=== PATIENT | male | born 1995 | race Asian ===

== ENCOUNTER 2018-03-01 20:32 | Inpatient (IN) | payer MEDICAID ==
[~2018-03-01] VITALS: Ht 172.7 cm; Wt 180.0 kg
[~2018-03-01 20:32] MED LIST: PANT40TA4 PO
[2018-03-01 21:25] LABS: HEMOGLOBIN 11.8 g/dl (14.0-17.9); MONOCYTES # (AUTO) 1.2 X10'3 (0-0.9); WHITE BLOOD COUNT 16.7 X10'3 (4.5-11.0)
[2018-03-01 21:37] LABS: INR 0.9 INR; PARTIAL THROMBOPLASTIN TIME 27 SECONDS (22-32); PROTHROMBIN TIME 9.8 SECONDS (9.0-12.0)
[2018-03-01 21:47] LABS: ALANINE AMINOTRANSFERASE 103 U/L (12-78); ALBUMIN 3.2 G/DL (3.4-5.0); ALBUMIN/GLOBULIN RATIO 0.7 (1.1-1.5); ALKALINE PHOSPHATASE 126 IU/L (46-116); ANION GAP 9 (8-16); ASPARTATE AMINO TRANSFERASE 55 U/L (10-37); BILIRUBIN,TOTAL 0.5 MG/DL (0.1-1.0); BLOOD UREA NITROGEN 14 MG/DL (7-18); BUN/CREATININE RATIO 13.9 (5.4-32.0); CALCIUM 9.1 MG/DL (8.5-10.1); CHLORIDE 107 MMOL/L (99-107); CREATININE 1.01 MG/DL (0.60-1.10); GLUCOSE 141 MG/DL (70-104); POTASSIUM 4.2 MMOL/L (3.5-5.1); SODIUM 144 MMOL/L (135-145); TOTAL CARBON DIOXIDE 28.1 MMOL/L (24-32); TOTAL PROTEIN 7.7 G/DL (6.4-8.2); eGFR > 90 ML/MIN
[2018-03-01 22:02] LABS: BASOPHILS # (AUTO) 0.1 X10'3 (0-0.2); BASOPHILS % (AUTO) 0.7 % (0-1); EOSINOPHILS # (AUTO) 0.7 X10'3 (0-0.9); EOSINOPHILS % (AUTO) 4.2 % (0-6); LYMPHOCYTES # (AUTO) 3.3 X10'3 (1.1-4.8); LYMPHOCYTES % (AUTO) 19.6 % (21-51); MEAN CORPUSCULAR HEMOGLOBIN 17.8 PG (27.0-31.0); MEAN CORPUSCULAR HGB CONC 30.3 % (33.0-36.5); MEAN CORPUSCULAR VOLUME 58.5 FL (78-98); MEAN PLATELET VOLUME 8.4 FL (7.4-10.4); MONOCYTES % (AUTO) 7.4 % (2-12); NEUTROPHILS # (AUTO) 11.4 X10'3 (1.8-7.7); NEUTROPHILS % (AUTO) 68.1 % (42-75); PLATELET COUNT 349 X10'3 (140-440); RED BLOOD COUNT 6.66 X10'6 (4.70-6.10)
[2018-03-01 22:47] LABS: ANISOCYTOSIS 2+; MICROCYTOSIS 3+; PLATELET ESTIMATE NORMAL
[2018-03-01 22:48] LABS: HYPOCHROMASIA 1+; POLYCHROMASIA 1+; TARGET CELLS FEW
[2018-03-01] MEDS ORDERED: albuterol 2.5 MG/3 ML nebule NEB ONE (22:50)
[2018-03-01] MEDS ORDERED: methylPREDNISolone sod succ 125mg/2ml vial IV ONE (22:50)
[2018-03-01 23:23] LABS: D-DIMER 0.31 MG/L FEU (0-0.50)
[2018-03-02 00:16] LABS: ABG BASE EXCESS -1.3 mmol/L (-2.0-3.0); ABG HCO3 24.8 mmol/L (22.0-26.0); ABG OXYGEN SATURATION 89.4 % (95-98); ABG PCO2 (T) 47.4 mmHg (35.0-48.0); ABG PH (T) 7.337 (7.350-7.450); ABG PO2 (T) 61.2 mmHg (83-108); ALLEN'S TEST Positive; FCOHb 1.5 % (0.5-1.5); FMetHb 0.1 % (0.3-1.12); RESPIRATORY RATE (OBSERVED) 20 b/min; TOTAL HEMOGLOBIN 12.7 G/dl (14.0-18.0)
[2018-03-02] MEDS ORDERED: NO HOME MEDS (00:18)
[2018-03-02] MEDS ORDERED: iohexol 350MG/ML 100ml bottle IV ONE (00:37)
[2018-03-02] MEDS ORDERED: potassium Cl 40MEQ/NS 500ml 500 ML IV PRN ×2 (01:40)
[2018-03-02] MEDS ORDERED: magnesium hydroxide 30ml (MOM) UD suspension PO PRN (01:40)
[2018-03-02] MEDS ORDERED: potassium Cl 20 mEq SR tablet PO PRN ×2 (01:40)
[2018-03-02] MEDS ORDERED: ondansetron/PF 4mg/2ml inj IV PRN (01:40)
[2018-03-02] MEDS ORDERED: acetaminophen 325mg tablet PO PRN (01:40)
[2018-03-02] MEDS ORDERED: morphine 4 MG/ML inj SYRINge IV PRN (01:40)
[2018-03-02] MEDS ORDERED: HYDROcodone/acetaminophen 5mg/325mg tablet PO PRN (01:40)
[2018-03-02] MEDS ORDERED: mag hydrox/Alum hydrox/simeth 30ml oral suspension PO PRN (01:40)
[2018-03-02] MEDS ORDERED: furosemide 10 MG/1 ML 10ml inj IV ONE (01:45)
[2018-03-02] MEDS ORDERED: ipratropium/albuterol 3ml nebule NEB PRN ×2 (01:45→02:25)
[2018-03-02 02:11] LABS: HEMOGLOBIN A1C 6.3 % (4.5-6.2)
[2018-03-02] MEDS: CefTRIAXone/D5W-Rocephin 1gm 50 ML IV SCH ×2 (02:24→20:33)
[2018-03-02] MEDS ORDERED: insulin Lispro (HumaLOG) vial - multi-dose SQ SCH (02:25)
[2018-03-02] MEDS ORDERED: dextrose 50%-water 50ml dispensing syringe IV PRN ×2 (02:25)
[2018-03-02] MEDS ORDERED: dextrose ORAL solution 15 GM/59 ML bottle PO PRN ×2 (02:25)
[2018-03-02] MEDS ORDERED: glucagon, human recombinant 1mg kit SUBCUT PRN (02:25)
[2018-03-02] MEDS ORDERED: MESSAGE TO PHARMACY PO ONE (02:25)
[2018-03-02] MEDS: K and/or MAG REPLACEMENT MC SCH (08:00)
[2018-03-02] MEDS: lactobacillus rhamnosus 10,000 MMU CELLS/CAPSULE PO SCH ×2 (10:09→20:33)
[2018-03-02] MEDS: lisinopril 10 MG tablet PO SCH (10:09)
[2018-03-02] MEDS: heparin, porcine 5000 units/ml vial SQ SCH ×2 (10:09→16:39)
[2018-03-02 15:00] VITALS: BP 107/58
[2018-03-02 17:39] LABS: BASOPHILS % (AUTO) 0 % (0-1); EOSINOPHILS % (AUTO) 0 % (0-6); HEMATOCRIT 38.8 % (42.0-52.0); HEMOGLOBIN 11.6 g/dl (14.0-17.9); LYMPHOCYTES # (AUTO) 1.9 X10'3 (1.1-4.8); LYMPHOCYTES % (AUTO) 7.7 % (21-51); MEAN CORPUSCULAR HEMOGLOBIN 17.4 PG (27.0-31.0); MEAN CORPUSCULAR HGB CONC 29.8 % (33.0-36.5); MEAN CORPUSCULAR VOLUME 58.4 FL (78-98); MEAN PLATELET VOLUME 8.3 FL (7.4-10.4); MONOCYTES # (AUTO) 1.4 X10'3 (0-0.9); MONOCYTES % (AUTO) 5.6 % (2-12); NEUTROPHILS # (AUTO) 21.1 X10'3 (1.8-7.7); NEUTROPHILS % (AUTO) 86.7 % (42-75); PLATELET COUNT 403 X10'3 (140-440); RED BLOOD COUNT 6.64 X10'6 (4.70-6.10); RED CELL DISTRIBUTION WIDTH 20.5 % (11.5-14.5); WHITE BLOOD COUNT 24.3 X10'3 (4.5-11.0)
[2018-03-02 17:42] LABS: PLATELET ESTIMATE NORMAL
[2018-03-02 17:52] LABS: HYPOCHROMASIA 3+; POLYCHROMASIA 1+
[2018-03-02 17:53] LABS: ANISOCYTOSIS 2+; MICROCYTOSIS 3+
[2018-03-02 19:00] VITALS: BP 133/75
[2018-03-02 21:00] VITALS: BP 154/72
[2018-03-02] MEDS: insulin glargine (Lantus) pen - multi-dose SQ SCH (21:00)
[2018-03-02 23:00] VITALS: BP 154/72
[2018-03-03] VITALS (10 sets, daily range): BP systolic 110–146; BP diastolic 50–98
[2018-03-03] MEDS: heparin, porcine 5000 units/ml vial SQ SCH ×3 (00:43→16:01)
[2018-03-03 02:05] LABS: % IRON SATURATION 7 % (11-46); IRON 22 UG/DL (53-167); TOTAL IRON BINDING CAPACITY 332 UG/DL (259-388)
[2018-03-03 02:13] LABS: BASOPHILS % (AUTO) 0.2 % (0-1); EOSINOPHILS # (AUTO) 0.3 X10'3 (0-0.9); EOSINOPHILS % (AUTO) 1.6 % (0-6); HEMATOCRIT 37.1 % (42.0-52.0); HEMOGLOBIN 11.2 g/dl (14.0-17.9); LYMPHOCYTES # (AUTO) 2.1 X10'3 (1.1-4.8); LYMPHOCYTES % (AUTO) 10.1 % (21-51); MEAN CORPUSCULAR HEMOGLOBIN 17.8 PG (27.0-31.0); MEAN CORPUSCULAR HGB CONC 30.1 % (33.0-36.5); MEAN PLATELET VOLUME 8.4 FL (7.4-10.4); MONOCYTES # (AUTO) 1.5 X10'3 (0-0.9); MONOCYTES % (AUTO) 6.9 % (2-12); NEUTROPHILS # (AUTO) 17.2 X10'3 (1.8-7.7); NEUTROPHILS % (AUTO) 81.2 % (42-75); PLATELET COUNT 339 X10'3 (140-440); RED BLOOD COUNT 6.29 X10'6 (4.70-6.10); RED CELL DISTRIBUTION WIDTH 20.2 % (11.5-14.5); WHITE BLOOD COUNT 21.2 X10'3 (4.5-11.0)
[2018-03-03 02:31] LABS: ALANINE AMINOTRANSFERASE 100 U/L (12-78); ALBUMIN 2.9 G/DL (3.4-5.0); ALBUMIN/GLOBULIN RATIO 0.7 (1.1-1.5); ALKALINE PHOSPHATASE 101 IU/L (46-116); ANION GAP 8 (8-16); ASPARTATE AMINO TRANSFERASE 46 U/L (10-37); BILIRUBIN,TOTAL 0.5 MG/DL (0.1-1.0); BLOOD UREA NITROGEN 19 MG/DL (7-18); BUN/CREATININE RATIO 17.3 (5.4-32.0); CALCIUM 8.5 MG/DL (8.5-10.1); CHLORIDE 103 MMOL/L (99-107); FERRITIN 23 NG/ML (26-388); GLUCOSE 172 MG/DL (70-104); MAGNESIUM 2.1 MG/DL (1.5-2.4); PHOSPHORUS 5.1 MG/DL (2.3-4.5); POTASSIUM 3.8 MMOL/L (3.5-5.1); SODIUM 143 MMOL/L (135-145); TOTAL PROTEIN 7.1 G/DL (6.4-8.2); eGFR 84 ML/MIN
[2018-03-03 03:26] LABS: NUCLEATED RED BLOOD CELLS 1 /100WBC (0-0); PLATELET ESTIMATE NORMAL; TOTAL CELLS COUNTED 100
[2018-03-03 03:27] LABS: ANISOCYTOSIS 2+; HYPOCHROMASIA 3+; MICROCYTOSIS 3+; POLYCHROMASIA 1+
[2018-03-03 03:28] LABS: TARGET CELLS FEW; TEAR DROP CELLS FEW
[2018-03-03] MEDS: lactobacillus rhamnosus 10,000 MMU CELLS/CAPSULE PO SCH ×2 (07:57→20:22)
[2018-03-03] MEDS: lisinopril 10 MG tablet PO SCH (07:58)
[2018-03-03] MEDS: K and/or MAG REPLACEMENT MC SCH (08:00)
[2018-03-03] MEDS: CefTRIAXone/D5W-Rocephin 1gm 50 ML IV SCH (20:22)
[2018-03-03] MEDS: insulin glargine (Lantus) pen - multi-dose SQ SCH (21:00)
[2018-03-04] VITALS (12 sets, daily range): BP systolic 127–148; BP diastolic 55–85
[2018-03-04] MEDS: heparin, porcine 5000 units/ml vial SQ SCH ×3 (00:25→16:13)
[2018-03-04 00:41] LABS: BASOPHILS # (AUTO) 0.1 X10'3 (0-0.2); BASOPHILS % (AUTO) 0.5 % (0-1); EOSINOPHILS # (AUTO) 0.6 X10'3 (0-0.9); EOSINOPHILS % (AUTO) 3.6 % (0-6); HEMATOCRIT 40.3 % (42.0-52.0); HEMOGLOBIN 11.9 g/dl (14.0-17.9); LYMPHOCYTES # (AUTO) 3.1 X10'3 (1.1-4.8); LYMPHOCYTES % (AUTO) 19.7 % (21-51); MEAN CORPUSCULAR HEMOGLOBIN 17.5 PG (27.0-31.0); MEAN CORPUSCULAR HGB CONC 29.6 % (33.0-36.5); MONOCYTES # (AUTO) 1.1 X10'3 (0-0.9); MONOCYTES % (AUTO) 6.9 % (2-12); NEUTROPHILS % (AUTO) 69.3 % (42-75); PLATELET COUNT 371 X10'3 (140-440); RED BLOOD COUNT 6.83 X10'6 (4.70-6.10); RED CELL DISTRIBUTION WIDTH 20.9 % (11.5-14.5); WHITE BLOOD COUNT 15.9 X10'3 (4.5-11.0)
[2018-03-04 00:57] LABS: ALANINE AMINOTRANSFERASE 163 U/L (12-78); ALBUMIN/GLOBULIN RATIO 0.7 (1.1-1.5); ALKALINE PHOSPHATASE 118 IU/L (46-116); ANION GAP 9 (8-16); ASPARTATE AMINO TRANSFERASE 94 U/L (10-37); BILIRUBIN,TOTAL 0.4 MG/DL (0.1-1.0); BLOOD UREA NITROGEN 16 MG/DL (7-18); CALCIUM 8.7 MG/DL (8.5-10.1); CHLORIDE 105 MMOL/L (99-107); CREATININE 1.07 MG/DL (0.60-1.10); GLUCOSE 110 MG/DL (70-104); PHOSPHORUS 4.5 MG/DL (2.3-4.5); SODIUM 145 MMOL/L (135-145); TOTAL CARBON DIOXIDE 31.2 MMOL/L (24-32); TOTAL PROTEIN 7.5 G/DL (6.4-8.2); eGFR 86 ML/MIN
[2018-03-04] MEDS: lactobacillus rhamnosus 10,000 MMU CELLS/CAPSULE PO SCH ×2 (07:19→20:45)
[2018-03-04] MEDS: lisinopril 10 MG tablet PO SCH (07:19)
[2018-03-04 07:31] LABS: ANISOCYTOSIS 3+; MICROCYTOSIS 3+; PLATELET ESTIMATE NORMAL
[2018-03-04 07:34] LABS: POIKILOCYTOSIS FEW; POLYCHROMASIA 1+; TARGET CELLS FEW
[2018-03-04] MEDS: K and/or MAG REPLACEMENT MC SCH (08:00)
[2018-03-04] MEDS: CefTRIAXone/D5W-Rocephin 1gm 50 ML IV SCH (20:46)
[2018-03-04] MEDS: insulin glargine (Lantus) pen - multi-dose SQ SCH (21:00)
[2018-03-05] VITALS (8 sets, daily range): BP systolic 106–146; BP diastolic 52–96
[2018-03-05] MEDS: heparin, porcine 5000 units/ml vial SQ SCH ×3 (00:46→16:19)
[2018-03-05 01:13] LABS: ALANINE AMINOTRANSFERASE 162 U/L (12-78); ALBUMIN 2.9 G/DL (3.4-5.0); ALBUMIN/GLOBULIN RATIO 0.7 (1.1-1.5); ALKALINE PHOSPHATASE 104 IU/L (46-116); ANION GAP 4 (8-16); ASPARTATE AMINO TRANSFERASE 77 U/L (10-37); BILIRUBIN,TOTAL 0.5 MG/DL (0.1-1.0); BLOOD UREA NITROGEN 14 MG/DL (7-18); BUN/CREATININE RATIO 14.7 (5.4-32.0); CALCIUM 8.7 MG/DL (8.5-10.1); CHLORIDE 106 MMOL/L (99-107); CREATININE 0.95 MG/DL (0.60-1.10); GLUCOSE 93 MG/DL (70-104); PHOSPHORUS 4.3 MG/DL (2.3-4.5); SODIUM 144 MMOL/L (135-145); TOTAL CARBON DIOXIDE 33.9 MMOL/L (24-32); TOTAL PROTEIN 6.9 G/DL (6.4-8.2); eGFR > 90 ML/MIN
[2018-03-05 01:49] LABS: BASOPHILS # (AUTO) 0.1 X10'3 (0-0.2); BASOPHILS % (AUTO) 0.4 % (0-1); EOSINOPHILS # (AUTO) 0.8 X10'3 (0-0.9); EOSINOPHILS % (AUTO) 5.7 % (0-6); HEMATOCRIT 38.3 % (42.0-52.0); HEMOGLOBIN 11.4 g/dl (14.0-17.9); LYMPHOCYTES # (AUTO) 2.6 X10'3 (1.1-4.8); LYMPHOCYTES % (AUTO) 19.6 % (21-51); MEAN CORPUSCULAR HEMOGLOBIN 17.7 PG (27.0-31.0); MEAN CORPUSCULAR HGB CONC 29.6 % (33.0-36.5); MEAN CORPUSCULAR VOLUME 59.7 FL (78-98); MEAN PLATELET VOLUME 8.3 FL (7.4-10.4); MONOCYTES # (AUTO) 1.1 X10'3 (0-0.9); MONOCYTES % (AUTO) 8.3 % (2-12); NEUTROPHILS # (AUTO) 8.8 X10'3 (1.8-7.7); PLATELET COUNT 351 X10'3 (140-440); RED BLOOD COUNT 6.42 X10'6 (4.70-6.10); RED CELL DISTRIBUTION WIDTH 20.3 % (11.5-14.5); WHITE BLOOD COUNT 13.4 X10'3 (4.5-11.0)
[2018-03-05 06:39] LABS: ANISOCYTOSIS 2+; MICROCYTOSIS 3+; PLATELET ESTIMATE NORMAL
[2018-03-05 06:40] LABS: HYPOCHROMASIA 1+; POIKILOCYTOSIS FEW; POLYCHROMASIA 2+; TARGET CELLS 1+
[2018-03-05] MEDS: lisinopril 10 MG tablet PO SCH (07:35)
[2018-03-05] MEDS: lactobacillus rhamnosus 10,000 MMU CELLS/CAPSULE PO SCH ×2 (07:35→19:57)
[2018-03-05] MEDS: K and/or MAG REPLACEMENT MC SCH (08:00)
[2018-03-05] MEDS: insulin glargine (Lantus) pen - multi-dose SQ SCH (21:00)
[2018-03-05] MEDS: CefTRIAXone/D5W-Rocephin 1gm 50 ML IV SCH (21:20)
[2018-03-06] MEDS: heparin, porcine 5000 units/ml vial SQ SCH ×2 (00:10→07:51)
[2018-03-06 03:00] VITALS: BP 121/52
[2018-03-06 05:55] LABS: ALANINE AMINOTRANSFERASE 163 U/L (12-78); ALBUMIN 2.9 G/DL (3.4-5.0); ALBUMIN/GLOBULIN RATIO 0.7 (1.1-1.5); ALKALINE PHOSPHATASE 97 IU/L (46-116); ANION GAP 6 (8-16); ASPARTATE AMINO TRANSFERASE 80 U/L (10-37); BILIRUBIN,TOTAL 0.7 MG/DL (0.1-1.0); BLOOD UREA NITROGEN 12 MG/DL (7-18); BUN/CREATININE RATIO 12.6 (5.4-32.0); CALCIUM 8.7 MG/DL (8.5-10.1); CHLORIDE 104 MMOL/L (99-107); CREATININE 0.95 MG/DL (0.60-1.10); GLUCOSE 93 MG/DL (70-104); PHOSPHORUS 4.1 MG/DL (2.3-4.5); POTASSIUM 3.8 MMOL/L (3.5-5.1); SODIUM 143 MMOL/L (135-145); TOTAL CARBON DIOXIDE 32.9 MMOL/L (24-32); eGFR > 90 ML/MIN
[2018-03-06 06:00] VITALS: BP 109/76
[2018-03-06 06:47] LABS: BASOPHILS % (AUTO) 0.4 % (0-1); EOSINOPHILS # (AUTO) 0.6 X10'3 (0-0.9); EOSINOPHILS % (AUTO) 5.2 % (0-6); HEMATOCRIT 36.9 % (42.0-52.0); HEMOGLOBIN 11.1 g/dl (14.0-17.9); LYMPHOCYTES # (AUTO) 2.2 X10'3 (1.1-4.8); LYMPHOCYTES % (AUTO) 20.1 % (21-51); MEAN CORPUSCULAR HEMOGLOBIN 17.8 PG (27.0-31.0); MEAN CORPUSCULAR VOLUME 59.3 FL (78-98); MEAN PLATELET VOLUME 8.3 FL (7.4-10.4); MONOCYTES # (AUTO) 0.9 X10'3 (0-0.9); MONOCYTES % (AUTO) 7.9 % (2-12); NEUTROPHILS # (AUTO) 7.3 X10'3 (1.8-7.7); NEUTROPHILS % (AUTO) 66.4 % (42-75); PLATELET COUNT 339 X10'3 (140-440); RED BLOOD COUNT 6.23 X10'6 (4.70-6.10); RED CELL DISTRIBUTION WIDTH 20.2 % (11.5-14.5); WHITE BLOOD COUNT 11.1 X10'3 (4.5-11.0)
[2018-03-06] MEDS: K and/or MAG REPLACEMENT MC SCH (07:39)
[2018-03-06] MEDS: lactobacillus rhamnosus 10,000 MMU CELLS/CAPSULE PO SCH (07:49)
[2018-03-06] MEDS: lisinopril 10 MG tablet PO SCH (07:50)
[2018-03-06 07:51] LABS: ABG BASE EXCESS 4.8 mmol/L (-2.0-3.0); ABG HCO3 31.2 mmol/L (22.0-26.0); ABG OXYGEN SATURATION 89.8 % (95-98); ABG PCO2 (T) 54.3 mmHg (35.0-48.0); ABG PH (T) 7.377 (7.350-7.450); ABG PO2 (T) 61.1 mmHg (83-108); ALLEN'S TEST Positive; FCOHb 0.9 % (0.5-1.5); FMetHb 0.2 % (0.3-1.12); FO2Hb 88.8 % (94-100); TOTAL HEMOGLOBIN 12.6 G/dl (14.0-18.0)
[2018-03-06 11:00] VITALS: BP 131/82
[2018-03-06] MEDS ORDERED: AMOX-422 PO (14:04)
[2018-03-06] MEDS ORDERED: LISI10TA4 PO (14:05)
[2018-03-06 15:00] VITALS: BP 113/59
== END 2018-03-06 15:40 | disposition home or self-care (01) | DRG 140 ==
LOC: ER 20:32 → ED HOLD 03-02 01:38 → PCU 3S 03-02 12:24
PROVIDERS: ADMIT Family Medicine; ATTEND Internal Medicine
PROC: 5A09457 Assistance with Respiratory Ventilation, 24-96 Consecutive Hours, Continuous Positive Airway Pressure (ICD-10-PCS; principal; 2018-03-02)
PROC: B32T1ZZ Computerized Tomography (CT Scan) of Left Pulmonary Artery using Low Osmolar Contrast (ICD-10-PCS; 2018-03-02)
PROC: B3201ZZ Computerized Tomography (CT Scan) of Thoracic Aorta using Low Osmolar Contrast (ICD-10-PCS; 2018-03-02)
PROC: B32S1ZZ Computerized Tomography (CT Scan) of Right Pulmonary Artery using Low Osmolar Contrast (ICD-10-PCS; 2018-03-02)
DX: J44.0 Chronic obstructive pulmonary disease with (acute) lower respiratory infection (principal); I50.9 Heart failure, unspecified; K76.0 Fatty (change of) liver, not elsewhere classified; I11.0 Hypertensive heart disease with heart failure; Z68.44 Body mass index [BMI] 60.0-69.9, adult; L03.115 Cellulitis of right lower limb; E66.2 Morbid (severe) obesity with alveolar hypoventilation; L03.116 Cellulitis of left lower limb; R73.9 Hyperglycemia, unspecified; R74.0 Nonspecific elevation of levels of transaminase and lactic acid dehydrogenase [LDH]; R09.02 Hypoxemia; M79.1 Myalgia; D50.9 Iron deficiency anemia, unspecified; J20.9 Acute bronchitis, unspecified; Z79.899 Other long term (current) drug therapy; Z81.8 Family history of other mental and behavioral disorders
CPT/HCPCS: 36415; 36600; 71045; 71275; 80053; 82728; 82803; 82948; 83036; 83540; 83550; 83605; 83735; 83880; 84100; 84484; 85018; 85025; 85379; 85610; 85730; 87040; 87502; 87503; 93306; 94640; 94660; 94760; 96374; 99285; A6449; J0696; J1644; J1815; J1940; J2930; J7030; Q9967

== ENCOUNTER 2018-04-12 11:23 | Emergency (ER) | payer MEDICAID ==
[~2018-04-12] VITALS: Ht 172.7 cm; Wt 159.1 kg
[~2018-04-12 11:23] MED LIST changes: +LISI10TA4 PO; +NO HOME MEDS
[2018-04-12 11:56] VITALS: BP 128/88
[2018-04-12] MEDS ORDERED: zinc oxide ointment 30gm tube TP STA (12:28)
[2018-04-12] MEDS ORDERED: ketoconazole 2% cream 15gm TP STA (12:28)
[2018-04-12] MEDS ORDERED: mupirocin 2% ointment 22GM TP STA (12:28)
== END 2018-04-12 13:02 | disposition home or self-care (01) ==
LOC: ER 11:24
DX: R21 Rash and other nonspecific skin eruption (principal); Z90.89 Acquired absence of other organs; Z79.899 Other long term (current) drug therapy
CPT/HCPCS: 99284

== ENCOUNTER 2019-01-18 03:41 | Inpatient (IN) | payer MEDICAID ==
[~2019-01-18] VITALS: Ht 170.2 cm; Wt 151.8 kg
[2019-01-18] VITALS (16 sets, daily range): BP systolic 106–156; BP diastolic 43–82
[2019-01-18] MEDS ORDERED: ondansetron/PF 4mg/2ml inj IV ONE (03:50)
[2019-01-18] MEDS ORDERED: normal saline 1000ML IV soln IVB ONE (03:50)
[2019-01-18] MEDS: morphine 4 MG/ML inj SYRINge IV PRN ×2 (03:59→04:32)
[2019-01-18 04:21] LABS: CLARITY,URINE CLEAR (Clear); COLOR,URINE YELLOW (Yellow); GLUCOSE, URINE NEGATIVE (Neg); KETONES,URINE NEGATIVE (Neg); LEUKOCYTE ESTERASE ,URINE NEGATIVE (Neg); NITRITES, URINE NEGATIVE (Neg); OCCULT BLOOD,URINE NEGATIVE (Neg); PH,URINE 6.5 (4.8-8.0); PROTEIN,URINE NEGATIVE (Neg); UROBILINOGEN,URINE 0.2 E.U/dL (0.2-1.0)
[2019-01-18 04:22] LABS: ALANINE AMINOTRANSFERASE 88 U/L (12-78); ALBUMIN 3.6 G/DL (3.4-5.0); ALBUMIN/GLOBULIN RATIO 0.9 (1.1-1.5); ALKALINE PHOSPHATASE 127 IU/L (46-116); ANION GAP 12 (8-16); ASPARTATE AMINO TRANSFERASE 46 U/L (10-37); BILIRUBIN,TOTAL 0.8 MG/DL (0.1-1.0); BLOOD UREA NITROGEN 12 MG/DL (7-18); BUN/CREATININE RATIO 10.5 (5.4-32.0); CALCIUM 8.9 MG/DL (8.5-10.1); CHLORIDE 104 MMOL/L (99-107); CREATININE 1.14 MG/DL (0.60-1.10); GLUCOSE 95 MG/DL (70-104); LIPASE 115 U/L (73-393); POTASSIUM 3.4 MMOL/L (3.5-5.1); SODIUM 143 MMOL/L (135-145); TOTAL CARBON DIOXIDE 27.2 MMOL/L (24-32); TOTAL PROTEIN 7.8 G/DL (6.4-8.2); eGFR 80 ML/MIN
[2019-01-18 04:26] LABS: UA COLLECTION TYPE CLN CATCH MIDSTREAM
[2019-01-18 04:26] LABS: BASOPHILS # (AUTO) 0.2 X10'3 (0-0.2); BASOPHILS % (AUTO) 1.4 % (0-1); EOSINOPHILS # (AUTO) 0.5 X10'3 (0-0.9); EOSINOPHILS % (AUTO) 4.3 % (0-6); HEMATOCRIT 40.7 % (42.0-52.0); HEMOGLOBIN 12.1 g/dl (14.0-17.9); LYMPHOCYTES # (AUTO) 2.6 X10'3 (1.1-4.8); LYMPHOCYTES % (AUTO) 21.5 % (21-51); MEAN CORPUSCULAR HEMOGLOBIN 19.1 PG (27.0-31.0); MEAN CORPUSCULAR HGB CONC 29.7 g/dL (33.0-36.5); MEAN CORPUSCULAR VOLUME 64.3 FL (78-98); MEAN PLATELET VOLUME 8.5 FL (7.4-10.4); MONOCYTES # (AUTO) 0.7 X10'3 (0-0.9); NEUTROPHILS # (AUTO) 8.2 X10'3 (1.8-7.7); NEUTROPHILS % (AUTO) 66.8 % (42-75); PLATELET COUNT 318 X10'3 (140-440); RED BLOOD COUNT 6.33 X10'6 (4.70-6.10); RED CELL DISTRIBUTION WIDTH 16.4 % (11.5-14.5); WHITE BLOOD COUNT 12.3 X10'3 (4.5-11.0)
[2019-01-18] MEDS ORDERED: piperacillin/tazo 3.375gm/50ml 50 ML IV ONE (05:20)
[2019-01-18] MEDS ORDERED: dextrose 5%-1/2 normal saline 1,000 ML IV SCH (05:37)
[2019-01-18] MEDS ORDERED: magnesium hydroxide 30ml (MOM) UD suspension PO PRN (05:40)
[2019-01-18] MEDS ORDERED: morphine 4 MG/ML inj SYRINge IV PRN ×6 (05:40→07:25)
[2019-01-18] MEDS ORDERED: ondansetron/PF 4mg/2ml inj IV PRN ×4 (05:40→07:40)
[2019-01-18] MEDS ORDERED: HYDROcodone/acetaminophen 5mg/325mg tablet PO PRN ×2 (05:40→07:40)
[2019-01-18] MEDS ORDERED: mag hydrox/Alum hydrox/simeth 30ml oral suspension PO PRN (05:40)
[2019-01-18] MEDS ORDERED: HYDROcodone/acetaminophen 10/325mg tab PO PRN ×2 (05:40→07:40)
[2019-01-18] MEDS ORDERED: acetaminophen 325mg tablet PO PRN ×2 (05:40)
[2019-01-18 06:16] LABS: PLATELET ESTIMATE NORMAL
[2019-01-18 06:17] LABS: ANISOCYTOSIS 1+; MICROCYTOSIS 2+
[2019-01-18 06:18] LABS: HYPOCHROMASIA 1+; POLYCHROMASIA FEW
[2019-01-18] MEDS ORDERED: LIDOcaine 1% 30ml preserv. free vial ONE (06:34)
[2019-01-18] MEDS ORDERED: BUPIVAcaine/PF 2.5mg/ml (0.25%) 10ml vial ONE (06:34)
[2019-01-18] MEDS ORDERED: fentaNYL/PF 50MCG/1 ML 2ML syringe ONE (06:52)
[2019-01-18] MEDS ORDERED: midazolam 2 mg/2 ml injection ONE (06:52)
[2019-01-18] MEDS ORDERED: LIDOcaine 2% (20mg/ml) 5ml vial ONE (06:52)
[2019-01-18] MEDS ORDERED: propofol inj 20 ML IV ONE (06:52)
[2019-01-18] MEDS ORDERED: rocuronium 10mg/ml inj IV ONE (06:55)
[2019-01-18] MEDS ORDERED: ringers solution, lacted 1,000 ML IV SCH ×2 (07:21→07:22)
[2019-01-18] MEDS ORDERED: meperidine/PF 25mg/ml syringe IV PRN ×6 (07:25)
[2019-01-18] MEDS ORDERED: proCHLORperazine 10 MG/2 ml inj IV PRN ×2 (07:25)
[2019-01-18] MEDS ORDERED: neostigmine methylsulfate 1 MG/ML 10ml vial ONE (07:29)
[2019-01-18] MEDS ORDERED: ketorolac trometh. 30mg/ml inj. ONE (07:29)
[2019-01-18] MEDS ORDERED: glycopyrrolate 0.2mg/ml inj ONE (07:29)
[2019-01-18] MEDS ORDERED: ondansetron/PF 4mg/2ml inj ONE (07:29)
--- NOTE | 2019-01-18 07:50 | NUR ---
Received from OR via BED, accompanied by Anesthesiologist --TRIP- and report given by Anesthesiolgist. PATIENT WAKING UP, DENIES PAIN, V/S WNL, NEUROVASCULAR CHECKS INTACT, 20G PIV LUE, SCD ON, 4 BANDAIDS TO ABDOMEN LAP SITES CDI
--- NOTE | 2019-01-18 08:50 | NUR ---
pATIENT A&OX4, DENIES PAIN, V/S WNL, CSM INTACT, 18G IN LEFT HAND, SCD ON, 4 BANDAIDS TO ABDOMEN CDI. PATIENT TAKEN TO 354C WITH ALL BELONGINGS AND HOOKED UP TO MONITORS IN ROOM AND REPORT GIVEN TO ELENA ALVARADO WHO HAS TAKEN OVER PATIENT CARE.
--- NOTE | 2019-01-18 09:00 | NUR ---
[facility]. Pt on post op vs. Discussed POC and pt verbalizes understanding. Visitor at bedside. Lap sites with bandaids x4 CDI. Bed low call light in reach.
--- NOTE | 2019-01-18 15:30 | NUR ---
Spoke with Dr Gardner about pt meeting criteria for DC and wishing to go. He cleared him for Hospitalist to DC. No Hospitalist is assigned for days so Dr Quiroga agreed to do the DC.
[2019-01-18] MEDS ORDERED: HYDR-3972 PO (16:08)
--- NOTE | 2019-01-18 16:28 | NUR ---
Pt refused Nasal swab for MRSA.
== END 2019-01-18 16:59 | disposition home or self-care (01) | DRG 263 ==
LOC: ER 03:41 → ED HOLD 05:37 → SUR 3N 08:59
PROVIDERS: ADMIT Internal Medicine; ATTEND Family Medicine
PROC: 0FT44ZZ Resection of Gallbladder, Percutaneous Endoscopic Approach (ICD-10-PCS; principal; 2019-01-18 06:50)
DX: K80.00 Calculus of gallbladder with acute cholecystitis without obstruction (principal); N17.9 Acute kidney failure, unspecified; E66.01 Morbid (severe) obesity due to excess calories; D50.9 Iron deficiency anemia, unspecified; E86.0 Dehydration; E87.6 Hypokalemia; G47.30 Sleep apnea, unspecified; R74.0 Nonspecific elevation of levels of transaminase and lactic acid dehydrogenase [LDH]; Z68.43 Body mass index [BMI] 50.0-59.9, adult
CPT/HCPCS: 36415; 74176; 80053; 81003; 83690; 85025; 96374; 96375; 99285; A7000; G0378; J1885; J2001; J2250; J2270; J2405; J2543; J2704; J2710; J3010; J3490; J7120

== ENCOUNTER 2019-06-22 18:06 | Emergency (ER) | payer MEDICAID ==
[~2019-06-22] VITALS: Ht 172.7 cm; Wt 143.0 kg
[~2019-06-22 18:06] MED LIST changes: +HYDR-3972 PO; -LISI10TA4 PO; -NO HOME MEDS; -PANT40TA4 PO
[2019-06-22 18:13] VITALS: BP 161/100
[2019-06-22] MEDS ORDERED: CLOT15CR5 TOP (21:33)
[2019-06-22] MEDS ORDERED: KETO120S3 TOP (21:33)
== END 2019-06-22 21:48 | disposition home or self-care (01) ==
LOC: ER 18:06
DX: B35.4 Tinea corporis (principal); Z98.890 Other specified postprocedural states; Z79.899 Other long term (current) drug therapy
CPT/HCPCS: 99282

== ENCOUNTER 2019-06-29 10:12 | Emergency (ER) | payer MEDICAID ==
[~2019-06-29] VITALS: Ht 172.7 cm; Wt 144.1 kg
[~2019-06-29 10:12] MED LIST changes: +CLOT15CR5 TOP; +KETO120S3 TOP
[2019-06-29 10:38] VITALS: BP 136/80
== END 2019-06-29 10:41 | disposition home or self-care (01) ==
LOC: ER 10:12
DX: B35.0 Tinea barbae and tinea capitis (principal); Z98.890 Other specified postprocedural states; Z79.899 Other long term (current) drug therapy
CPT/HCPCS: 99281

== ENCOUNTER 2019-08-09 15:30 | Emergency (ER) | payer MEDICAID ==
[~2019-08-09] VITALS: Ht 172.7 cm; Wt 124.0 kg
[2019-08-09 16:11] LABS: BASOPHILS # (AUTO) 0.1 X10'3 (0-0.2); BASOPHILS % (AUTO) 0.7 % (0-1); EOSINOPHILS # (AUTO) 0.4 X10'3 (0-0.9); EOSINOPHILS % (AUTO) 3.7 % (0-6); HEMATOCRIT 41.2 % (42.0-52.0); HEMOGLOBIN 12.5 g/dl (14.0-17.9); LYMPHOCYTES # (AUTO) 2.2 X10'3 (1.1-4.8); LYMPHOCYTES % (AUTO) 19.3 % (21-51); MEAN CORPUSCULAR HEMOGLOBIN 19.2 PG (27.0-31.0); MEAN CORPUSCULAR HGB CONC 30.4 g/dL (33.0-36.5); MEAN CORPUSCULAR VOLUME 63.3 FL (78-98); MEAN PLATELET VOLUME 8.1 FL (7.4-10.4); MONOCYTES # (AUTO) 0.7 X10'3 (0-0.9); MONOCYTES % (AUTO) 6.4 % (2-12); NEUTROPHILS # (AUTO) 7.9 X10'3 (1.8-7.7); NEUTROPHILS % (AUTO) 69.9 % (42-75); PLATELET COUNT 390 X10'3 (140-440); RED BLOOD COUNT 6.51 X10'6 (4.70-6.10); RED CELL DISTRIBUTION WIDTH 15.6 % (11.5-14.5); WHITE BLOOD COUNT 11.3 X10'3 (4.5-11.0)
[2019-08-09 16:16] LABS: ALANINE AMINOTRANSFERASE 48 U/L (12-78); ALBUMIN 3.7 G/DL (3.4-5.0); ALBUMIN/GLOBULIN RATIO 0.8 (1.1-1.5); ALKALINE PHOSPHATASE 133 IU/L (46-116); ANION GAP 8 (8-16); ASPARTATE AMINO TRANSFERASE 23 U/L (10-37); BILIRUBIN,TOTAL 0.6 MG/DL (0.1-1.0); BLOOD UREA NITROGEN 13 MG/DL (7-18); BUN/CREATININE RATIO 13.4 (5.4-32.0); CHLORIDE 110 MMOL/L (99-107); CREATININE 0.97 MG/DL (0.60-1.10); GLUCOSE 104 MG/DL (70-104); LIPASE 93 U/L (73-393); POTASSIUM 3.7 MMOL/L (3.5-5.1); SODIUM 144 MMOL/L (135-145); TOTAL CARBON DIOXIDE 26.4 MMOL/L (24-32); TOTAL PROTEIN 8.1 G/DL (6.4-8.2); eGFR > 90 ML/MIN
[2019-08-09] MEDS ORDERED: LIDOcaine Viscous 15ml cup PO ONE (17:30)
[2019-08-09] MEDS ORDERED: famotidine 20mg tablet PO ONE (17:30)
[2019-08-09] MEDS ORDERED: mag hydrox/Alum hydrox/simeth 30ml oral suspension PO ONE (17:30)
[2019-08-09 17:44] LABS: PLATELET ESTIMATE NORMAL
[2019-08-09 17:45] LABS: ANISOCYTOSIS FEW; HYPOCHROMASIA 1+; MICROCYTOSIS 2+; POLYCHROMASIA 1+; STOMATOCYTES FEW; TARGET CELLS FEW; TEAR DROP CELLS FEW
[2019-08-09 18:14] VITALS: BP 143/86
== END 2019-08-09 18:16 | disposition home or self-care (01) ==
LOC: ER 15:30
DX: R10.13 Epigastric pain (principal); Z90.49 Acquired absence of other specified parts of digestive tract; Z90.89 Acquired absence of other organs; Z79.899 Other long term (current) drug therapy
CPT/HCPCS: 36415; 80053; 83690; 85025; 99283

== ENCOUNTER 2020-05-31 10:51 | Emergency (ER) | payer MEDICAID ==
[~2020-05-31] VITALS: Ht 172.7 cm; Wt 136.8 kg
[~2020-05-31 10:51] MED LIST changes: +CLOT15CR35 TOP; -CLOT15CR5 TOP; -KETO120S3 TOP; +KETO120S5 TOP
[2020-05-31] MEDS ORDERED: IBUP-1984 PO (11:54)
[2020-05-31] MEDS ORDERED: traMADol 50MG tablet PO ONE (11:55)
[2020-05-31 12:08] VITALS: BP 146/92
== END 2020-05-31 12:33 | disposition home or self-care (01) ==
LOC: ER 10:51
DX: Z00.8 Encounter for other general examination (principal); M25.562 Pain in left knee; M25.561 Pain in right knee; Z90.49 Acquired absence of other specified parts of digestive tract; Z90.89 Acquired absence of other organs; Z79.2 Long term (current) use of antibiotics; Z79.899 Other long term (current) drug therapy
CPT/HCPCS: 99282; 99283

== ENCOUNTER 2022-05-20 23:37 | Emergency (ER) | payer MEDICAID ==
[~2022-05-20] VITALS: Ht 175.3 cm; Wt 150.0 kg
[2022-05-21 00:10] VITALS: BP 161/107
[2022-05-21 03:56] LABS: ALANINE AMINOTRANSFERASE 78 U/L (12-78); ALBUMIN 3.6 G/DL (3.4-5.0); ALBUMIN/GLOBULIN RATIO 0.8 (1.1-1.5); ALKALINE PHOSPHATASE 131 IU/L (46-116); ANION GAP 9 (8-16); ASPARTATE AMINO TRANSFERASE 27 U/L (10-37); BILIRUBIN,TOTAL 0.4 MG/DL (0.1-1.0); BLOOD UREA NITROGEN 13 MG/DL (7-18); BUN/CREATININE RATIO 12.5 (5.4-32.0); CALCIUM 8.9 MG/DL (8.5-10.1); CHLORIDE 108 MMOL/L (99-107); CREATININE 1.04 MG/DL (0.60-1.10); GLUCOSE 104 MG/DL (70-104); MAGNESIUM 2.1 MG/DL (1.5-2.4); POTASSIUM 3.9 MMOL/L (3.5-5.1); SODIUM 145 MMOL/L (135-145); TOTAL CARBON DIOXIDE 28.5 MMOL/L (24-32); TOTAL PROTEIN 7.9 G/DL (6.4-8.2); eGFR 86 ML/MIN
[2022-05-21 03:58] LABS: BASOPHILS # (AUTO) 0.1 X10'3 (0-0.2); EOSINOPHILS # (AUTO) 0.4 X10'3 (0-0.9); EOSINOPHILS % (AUTO) 3.5 % (0-6); HEMATOCRIT 40.3 % (42.0-52.0); HEMOGLOBIN 12.4 g/dl (14.0-17.9); LYMPHOCYTES # (AUTO) 3.8 X10'3 (1.1-4.8); LYMPHOCYTES % (AUTO) 30.5 % (21-51); MEAN CORPUSCULAR HEMOGLOBIN 19.4 PG (27.0-31.0); MEAN CORPUSCULAR HGB CONC 30.8 g/dL (33.0-36.5); MEAN CORPUSCULAR VOLUME 63.1 FL (78-98); MEAN PLATELET VOLUME 7.9 FL (7.4-10.4); MONOCYTES # (AUTO) 0.8 X10'3 (0-0.9); MONOCYTES % (AUTO) 6.2 % (2-12); NEUTROPHILS # (AUTO) 7.3 X10'3 (1.8-7.7); NEUTROPHILS % (AUTO) 58.8 % (42-75); PLATELET COUNT 380 X10'3 (140-440); RED BLOOD COUNT 6.38 X10'6 (4.70-6.10); RED CELL DISTRIBUTION WIDTH 15.9 % (11.5-14.5); WHITE BLOOD COUNT 12.4 X10'3 (4.5-11.0)
[2022-05-21 04:34] LABS: PLATELET ESTIMATE NORMAL
[2022-05-21 04:35] LABS: HYPOCHROMASIA 1+; LARGE PLATELETS FEW; MICROCYTOSIS 2+; POLYCHROMASIA 1+
== END 2022-05-21 04:59 | disposition home or self-care (01) ==
LOC: ER 23:38
DX: M79.10 Myalgia, unspecified site (principal); R53.1 Weakness; Z20.822 Contact with and (suspected) exposure to COVID-19
CPT/HCPCS: 80053; 83735; 85008; 85025; 87635; 99283; C9803

== ENCOUNTER 2025-09-10 18:07 | Emergency (ER) | payer MEDICAID ==
[~2025-09-10] VITALS: Ht 175.3 cm; Wt 148.0 kg
[2025-09-10 18:09] VITALS: BP 125/73; PULSE 70; TEMP 97.8; O2SAT 97
--- NOTE | 2025-09-10 18:12 | ELECTROCARDIOGRAPH REPORT ---
[facility] Test Date: 2025-09-10 Test Time: 18:10:28 Pat Name: KJ THOMPSON Department: EMERGENCY ROOM Room: Gender: M Hand [employer] Wheel Former: : 1995 Requested By: MEL VICTORIA Order Number: [id number] Reading MD: Measurements Intervals [place] Rate: 68 P: -18 ME: 179 QRS: 78 QRSD: 102 T: 24 QT: 412 QTc: 439 Interpretive Statements Sinus rhythm Baseline wander in lead(s) V2 Please click the below link to view image of tracing.
--- NOTE | 2025-09-10 18:34 | RADIOLOGY REPORT ---
EXAM: DI CHEST,SINGLE VIEW CLINICAL HISTORY: CP TECHNIQUE: Single PA view of the chest WID: COMPARISON: None FINDINGS: Lines and tubes: None Chest: The heart size and pulmonary vasculature is within normal limits. No pleural effusion, pneumothorax, or consolidation. The osseous structures are grossly intact. IMPRESSION: 1. No acute cardiopulmonary abnormality.
[2025-09-10 18:59] LABS: MEAN PLATELET VOLUME 7.5 FL (7.4-10.4); RED CELL DISTRIBUTION WIDTH 16.1 % (11.5-14.5)
[2025-09-10 19:20] LABS: CREATININE 1.10 MG/DL (0.60-1.10); PRO BRAIN NATRIURETIC PEPTIDE < 30 PG/ML (0-125); TOTAL CARBON DIOXIDE 29.9 MMOL/L (24-32); eCRCL 98 ML/MIN; eGFR 79 ML/MIN
[2025-09-10 19:30] LABS: PLATELET ESTIMATE NORMAL
[2025-09-10 19:31] LABS: ELLIPTOCYTES FEW
[2025-09-10 20:28] VITALS: RESP 18
[2025-09-10] MEDS: LIDOcaine 2% Viscous 15ml cup MM STA (20:33)
[2025-09-10] MEDS: pantoprazole 40mg Tablet.DR PO STA (20:33)
[2025-09-10] MEDS: mag hydrox/Alum hydrox/simeth 30ml oral suspension PO STA (20:33)
--- NOTE | 2025-09-10 21:07 | Physician Documentation ---
History of Present Illness ~ Chief Complaint: Chest Pain Stated Complaint: CHEST PAIN Time Seen by MD: 19:38 Primary Medical Doctor: ALONSO BISHOP Mode of Arrival: POV, Ambulatory HPI Patient is seen today with complaints of epigastric/lower chest pain. Patient states he has had this previously and does sometimes take antacid tablets. Patient denies any previous cardiac history. Patient has no other concern or complaint at this time. He denies any diabetes or hypertension and denies any shortness of breath or nausea, vomiting, diarrhea. Patient denies any significant relieving or aggravating factors of the epigastric pain. Medication Reconciliation Allergies: Coded Allergies: No Known Allergies (Unverified , 09/10/25) Scheduled Clotrimazole (Clotrimazole), 1 APPLIC TOP Q12H Ketoconazole (Ketoconazole), 1 APPLIC TOP Q2W Pantoprazole Sodium (PROTONIX tablet), 1 TAB PO DAILY Sucralfate (Sucralfate), 1 TAB PO Q8H Scheduled PRN Hydrocodone Bit/Acetaminophen (Hydrocodon-Acetaminophn 10-325 tablet), 1 TAB PO Q4H PRN for severe pain Past Medical History Past Medical History: *GI/HEPATOBILIARY* Past Surgical History: cholecystectomy, tonsillectomy Patient History: Patient reports no known family medical history. Alcohol Use: None Drug Use: none Lives with: Mother Lives In: Home Review of Systems Constitutional: Denies: chills, fever, weakness Eyes: Denies: pain, blurred vision ENT: Denies: ear pain, nose pain, throat pain, mouth pain Respiratory: Denies: cough, shortness of breath Cardiovascular: Denies: chest pain, palpitations Gastrointestinal: Denies: abdominal pain, nausea, vomiting Genitourinary: Denies: burning, dysuria Male Genitalia: Denies: penile discharge, testicular pain Neurological: Denies: headache, dizziness Musculoskeletal: Denies: pain, swelling Integumentary: Denies: rash, lesions Allergic/Immunologic: Denies: hives, itching Hematologic/Lymphatic: Denies: no symptoms reported Psychiatric: Denies: depression, anxiety Physical Exam Vital Signs: Temperature: 97.8, Source: Temporal, Heart Rate: 70, Respiratory Rate: 18, BP: 125/73, Pulse Oximetry: 97, Weight: 148.000 Oxygen Flow Rate: 0 Physical Exam General: Awake and Alert, no acute distress. HEENT: Conjunctiva pink, Sclera clear, Mucus Membranes moist. Neck: Supple without masses and tenderness. Resp: Unlabored. Lungs clear to auscultation bilaterally. Heart: Regular Rate and rhythm, normal S1 and S2 without murmur, rub or gallop. Abdomen: Patient on exam does have mild tenderness to palpation in the epigastric area. No tenderness to palpation in any other area. No rebound or guarding, abdomen is soft, nondistended and no masses. Extremities: No cyanosis,clubbing or edema. Skin: Warm and Dry. Progress Results/Orders Results/Orders Completed Orders - VIRGEN GARCIA PAC Mag & Alum Hydrox/Simeth Susp (Maalox Or (09/10/25 19:50) Lidocaine 2% Viscous (Xylocaine 2% Visco (09/10/25 19:50) Pantoprazole Tablet (Protonix) (09/10/25 19:50) Medications Received in ER Medications (Trade) Dose Ordered Sig/Olvin Route PRN Reason Start Time Stop Time Status Last Admin Dose Admin (Maalox oral suspension) 30 ml ONCE STAT PO 09/10/25 19:50 09/10/25 19:58 DC 09/10/25 20:33 30 ML (Xylocaine 2% Viscous 15mL cup) 15 ml ONCE STAT MM 09/10/25 19:50 09/10/25 19:58 DC 09/10/25 20:33 15 ML (Protonix) 40 mg ONCE STAT PO 09/10/25 19:50 09/10/25 19:58 DC 09/10/25 20:33 40 MG Vital Signs 09/10/25 09/10/25 18:09 20:28 Temp 97.8 Pulse 70 Resp 24 18 B/P (MAP) 125/73 Pulse Ox 97 O2 Flow Rate 0 Laboratory Tests Test 09/10/25 18:52 White Blood Count 10.4 Red Blood Count 6.34 H Hemoglobin 12.7 L Hematocrit 40.3 L Mean Corpuscular Volume 63.6 L Mean Corpuscular Hemoglobin 20.0 L Mean Corpuscular Hemoglobin Concent 31.5 L Red Cell Distribution Width 16.1 H Platelet Count 383 Mean Platelet Volume 7.5 Neutrophils (%) (Auto) 75.1 H Lymphocytes (%) (Auto) 14.7 L Monocytes (%) (Auto) 8.7 Eosinophils (%) (Auto) 1.0 Basophils (%) (Auto) 0.5 Neutrophils # (Auto) 7.8 H Lymphocytes # (Auto) 1.5 Monocytes # (Auto) 0.9 Eosinophils # (Auto) 0.1 Basophils # (Auto) 0.1 CBC Comment Platelet Estimate Normal Red Blood Cell Morphology Perf Hypochromasia 1+ Basophilic Stippling Anisocytosis 1+ Microcytosis 2+ Tear Drop Cells Few Stomatocytes 1+ Elliptocytes Few Sodium Level 142 Potassium Level 3.7 Chloride Level 105 Carbon Dioxide Level 29.9 Anion Gap 7 L Blood Urea Nitrogen 9 Creatinine 1.10 Estimated GFR/1.73 m2 79 BUN/Creatinine Ratio 8.2 L Glucose Level 95 Calcium Level 9.0 Troponin I High Sensitivity 6 Pro-B-Type Natriuretic Peptide < 30 Albumin 3.8 Chemistry Comments EKG/XRAY/CT/US/VASC/MRI EKG : Additional Comment EKG interpreted by myself today shows regular rate at 68 beats per minute, sinus rhythm, no sign of ST segment elevation or ischemic changes, no axis deviation. Chest X-Ray : Additional Comments Chest x-ray interpreted by myself today shows no large effusion, no large infiltrate, normal mediastinum. DIAGNOSTIC RADIOLOGY Patient: KJ THOMPSON Medical Record: [id number] [facility] 1995, Age: 30 Sex: Male Location: ER Patient Status: REG ER Service Date/Time: 09/10/251825 Ordering Physician: MEL VICTORIA MD Exam: CHEST,SINGLE VIEW EXAM: DI CHEST,SINGLE VIEW CLINICAL HISTORY: CP TECHNIQUE: Single PA view of the chest WID: COMPARISON: None FINDINGS: Lines and tubes: None Chest: The heart size and pulmonary vasculature is within normal limits. No pleural effusion, pneumothorax, or consolidation. The osseous structures are grossly intact. IMPRESSION: 1. No acute cardiopulmonary abnormality. Electronically Signed by:ISMAEL MULLEN MD Date & Time: 09/10/251830 Dictated by: ISMAEL MULLEN MD Dictation date and time: 09/10/251823 Primary Care Provider: NO PRIMARY CARE PROVIDER cc: MEL VICTORIA MD ~ Heart Score: Heart Score Response (Comments) Value History Slightly Suspicious 0 EKG Normal 0 Age <45 0 Risk Factors No known risk factors 0 Troponin Normal limit 0 Total 0 Medical Decision Making Additional information obtaine: N/A Findings Patient is seen today with complaints of epigastric/lower chest pain. Patient states he has had this previously and does sometimes take antacid tablets. Amanda ent denies any previous cardiac history. Patient has no other concern or complaint at this time. He denies any diabetes or hypertension and denies any shortness of breath or nausea, vomiting, diarrhea. Patient denies any significant relieving or aggravating factors of the epigastric pain. Patient did have labs drawn which showed negative troponin, heart score 0, patient did have GI cocktail administered and patient did have good relief with this. Prescription of sucralfate and PPI sent to patient's pharmacy to be taken as directed. Patient will follow up with primary care in 1-2 weeks if no better as needed sooner. Return to ED with any worsening, concerning or changing symptoms. Heart Score: 0 Differential Dx:Considerations: Include: angina, esophageal reflux/spasm, myocardial infarction Departure Disposition: HOME / SELF CARE / HOMELESS Impression: Primary Impression: PUD (peptic ulcer disease) Condition: Improved Discharge Instructions: Nonspecific Chest Pain, Adult Additional Instructions: Patient did have labs drawn which showed negative troponin, heart score 0, patient did have GI cocktail administered and patient did have good relief with this. Prescription of sucralfate and PPI sent to patient's pharmacy to be taken as directed. Patient will follow up with primary care in 1-2 weeks if no better as needed sooner. Return to ED with any worsening, concerning or changing symptoms. Referrals: NO PRIMARY CARE PROVIDER (PCP) Prescriptions Pantoprazole Sodium (PROTONIX tablet) 40 Mg Tablet. 1 TAB PO DAILY for 30 Days, #30 TAB 0 Refills Prov: VIRGEN GARCIA PAC 09/10/25 Sucralfate (Sucralfate) 1 Gram Tablet 1 TAB PO Q8H for 30 Days, #90 TAB 0 Refills Prov: VIRGEN GARCIA PAC 09/10/25 Signature Scribe Signature: No scribe Attestation: No scribe VIRGEN GARCIA PAC Sep 10, 2025 21:07
[2025-09-10] MEDS ORDERED: SUCR1TAB PO (21:09)
[2025-09-10] MEDS ORDERED: PANT-47 PO (21:09)
== END 2025-09-10 21:29 | disposition home or self-care (01) ==
LOC: ER 18:08
DX: K27.9 Peptic ulcer, site unspecified, unspecified as acute or chronic, without hemorrhage or perforation (principal); Z90.49 Acquired absence of other specified parts of digestive tract; Z90.89 Acquired absence of other organs; Z79.899 Other long term (current) drug therapy
CPT/HCPCS: 36415; 71045; 80048; 83880; 84484; 85008; 85025; 93005; 99285